=== PATIENT | male | born 1950 | race Caucasian/White ===

== ENCOUNTER → 2019-02-06 | Emergency (ER) | payer OTHER ==
[~2019-02-06] MED LIST: Patiromer POWDER* 8.4 GM PAK PO SCH
--- NOTE | 2019-02-06 12:35 | ED ---
GI/ HPI - HPI Summary HPI Summary: This patient is a 69 year old M presenting to ED with a chief complaint of L testicular pain and swelling since 01/31/19 that has worsened in the past week. The swelling began yesterday and was much more noticeable today. 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 The surgery was performed by Dr. Eliu Fernandez at [place]. The surgery was performed by . Patient reports L inguinal hardness. Patient denies difficulty urinating, fever, body aches, chills, N/V, abdominal pain. The patient rates the pain 4/10 in severity. Symptoms aggravated by nothing. Symptoms alleviated by nothing. - History of Current Complaint Chief Complaint: EDUrogenitalProblems Stated Complaint: DONATED KIDNEY 1 WK AGO/SWELLING/PAIN PER PT Hx Obtained From: Patient Onset/Duration: Started Weeks Ago - 01/31/19, Still Present, Worse Since - Timing: Constant, Lasting Weeks - 1 week Severity: Mild Current Severity: Moderate Pain Intensity: 4 Location of Pain: Other - L testicular Additional Locations for Males: Testicles Pain Characteristics: Other: - Soreness Pain Radiates to: Inguinal Associated Signs and Symptoms: Positive: Negative - Difficulty urinating, body aches. Negative: Nausea, Vomiting, Fever, Abdominal Pain Aggravating Factor(s): Nothing Alleviating Factor(s): Nothing - Allergy/Home Medications Allergies/Adverse Reactions: Allergies Allergy/AdvReac Type Severity Reaction Status Date / Time No Known Allergies Allergy Verified 02/06/19 10:50 Home Medications: Home Medications Acetaminophen [Tylenol] 650 mg PO QID PRN 02/06/19 [History Confirmed 02/06/19] Citalopram Hydrobromide [Citalopram HBr] 20 mg pe PO DAILY WITH MEAL 02/06/19 [ History Confirmed 02/06/19] Docusate Sodium [Colace] 100 mg PO BID PRN 02/06/19 [History Confirmed 02/06/19] Gabapentin 100 mg PO TID 02/06/19 [History Confirmed 02/06/19] Oxycodone HCl 5 mg PO Q6HR PRN 02/06/19 [History Confirmed 02/06/19] PMH/Surg Hx/FS Hx/Imm Hx Cardiovascular History: Reports: Hx Hypercholesterolemia Denies: Hx Pacemaker/ICD Musculoskeletal History: Reports: Hx Bursitis Sensory History: Reports: Hx Contacts or Glasses Denies: Hx Hearing Aid Opthamlomology History: Reports: Hx Contacts or Glasses Psychiatric History: Reports: Hx Depression Denies: Hx Panic Disorder - Surgical History Surgery Procedure, Year, and Place: LUMBAR DISCECTOMY; RIGHT SHOULDER ARTHROSCOPE; BILAT KNEE ARTHROSCOPES. laparoscopic kidney donation - Immunization History Date of Tetanus Vaccine: unk Date of Influenza Vaccine: 2014 Infectious Disease History: No Infectious Disease History: Denies: Traveled Outside the [place] in Last 30 Days - Family History Known Family History: Positive: Cardiac Disease Negative: Hypertension, Diabetes - Social History Alcohol Use: Daily Alcohol Amount: 1 drink a day Hx Substance Use: No Substance Use Type: Reports: None Hx Tobacco Use: No Smoking Status (MU): Never Smoked Tobacco Review of Systems Negative: Fever, Chills Negative: Abdominal Pain, Vomiting, Nausea Genitourinary: Negative - Difficulty urinating, Other - L-testicular soreness and swelling, subjective L inguinal hardness Negative: Arthralgia, Myalgia All Other Systems Reviewed And Are Negative: Yes Physical Exam - Summary Physical Exam Summary: GENERAL: Patient is a well-developed and nourished M who is lying comfortable in the stretcher. Patient is not in any acute respiratory distress. HEAD AND FACE: Normocephalic EYES: PERRLA, EOMI x 2. EARS: Hearing grossly intact. MOUTH: Oropharynx within normal limits. NECK: Supple, trachea is midline, no adenopathy, no JVD, no carotid bruit. CHEST: Symmetric, no tenderness at palpation LUNGS: Clear to auscultation bilaterally. No wheezing or crackles. CVS: Regular rate and rhythm, S1 and S2 present, no murmurs or gallops appreciated. ABDOMEN: tender to palpation at the surgical site, swollen and tender to palpation in the inguinal ligament region, tender to palpation in the left testicular region EXTREMITIES: Full ROM in all major joints, no edema, no cyanosis or clubbing. NEURO: Alert and oriented x 3. No acute neurological deficits. Speech is normal and follows commands. SKIN: Dry and warm Triage Information Reviewed: Yes Vital Signs On Initial Exam: Initial Vitals Temp Pulse Resp BP Pulse Ox 98.5 F 76 16 133/90 98 02/06/19 10:44 02/06/19 10:44 02/06/19 10:44 02/06/19 10:44 02/06/19 10:44 Vital Signs Reviewed: Yes Diagnostics - Vital Signs Vital Signs Temp Pulse Resp BP Pulse Ox 02/06/19 10:44 98.5 F 76 16 133/90 98 - Laboratory Result Diagrams: 02/06/19 12:34 02/06/19 12:34 Lab Statement: Any lab studies that have been ordered have been reviewed, and results considered in the medical decision making process. - Ultrasound Testicular Ultrasound Interpretation Completed By: Radiologist Summary of Ultrasound Findings: Enlarged left spermatic cord compared to the right. This is consistent with left vastitis. Small left hydrocele is noted. Dr. Santiago has reviewed this radiology report. Re-Evaluation - Re-Evaluation First Eval Re-Evaluation Time: 13:31 Comment: Discussed results with patient and informed him that we are waiting to hear back from his surgeon at [place]. Second Eval Re-Evaluation Time: 14:08 Comment: Told patient of plan to arrive earlier for his follow-up with transplant surgeon tomorrow. I will give patient a copy of his US to bring with him. GIGU Course/Dx - Course Course Of Treatment: This patient is a 69 year old M presenting to ED with a chief complaint of L testicular pain and swelling since 01/31/19 that has worsened in the past week. In the ED course, patient received Veltassa. Testicular US revealed enlarged left spermatic cord compared to the right. This is consistent with left vastitis. Small left hydrocele is noted. Blood work obtained. Discussed patient case with Dr. Harley, transplant surgeon at [place], who reviewed the patient's chart. The patient is already scheduled to follow-up tomorrow at 1030 in [place], so he recommended we tell the patient to arrive earlier for his appointment. He stated we should not do anything differently at this time. Therefore, the patient will be discharged home with dx of vasitis and instructions to arrive early for his appointment tomorrow. I discussed results with patient, and he reports feeling better. He is hemodynamically stable and safe for discharge. Strict return precautions given and he will otherwise follow up with his transplant surgeon. - Diagnoses Provider Diagnoses: Vasitis - Physician Notifications Discussed Care Of Patient With: Karri Trujillo Time Discussed With Above Provider: 14:05 Instructed by Provider To: Other - Discussed patient case with Dr. Harley, transplant surgeon at [place], who reviewed the patient's chart. The patient is already scheduled to follow-up tomorrow at 1030 in [place], so he recommended we tell the patient to arrive earlier for his appointment. He stated we should not do anything differently at this time. Discharge - Sign-Out/Discharge Documenting (check all that apply): Patient Departure - Discharge Patient Received Moderate/Deep Sedation with Procedure: No - Discharge Plan Condition: Stable Disposition: HOME Patient Education Materials: Testicle Pain (ED) Referrals: Rayo Simeon MD [Primary Care Provider] - 3 Days Additional Instructions: Arrive at 0930 for your 1030 appointment tomorrow at [place]. RETURN TO THE EMERGENCY DEPARTMENT FOR CHANGING OR WORSENING SYMPTOMS. - Billing Disposition and Condition Condition: STABLE Disposition: Home - Attestation Statements Document Initiated by Chantaleibe: Yes Documenting Scribe: Ryao Castillo Provider For Whom Scribe is Documenting (Include Credential): Aden Santiago MD Scribe Attestation: IRayo, scribed for Aden Santiago MD on 02/08/19 at 0748. Scribe Documentation Reviewed: Yes Provider Attestation: The documentation as recorded by the Rayo cantrell accurately reflects the service I personally performed and the decisions made by me, Aden Santiago MD Status of Scribe Document: Viewed
[2019-02-06 12:50] LABS: ABS Basophils 0.1 10^3/ul (0-0.2); ABS Eosinophils 0.2 10^3/ul (0-0.6); ABS Lymphocytes 1.4 10^3/ul (1.0-4.8); ABS Monocytes 0.8 10^3/ul (0-0.8); ABS Neutrophils 7.7 10^3/ul (1.5-7.7); Eosinophil % 1.6 %; Hematocrit 37 % (42-52); Hemoglobin 12.1 g/dL (14.0-18.0); Lymphocyte % 13.5 %; Mean Corpuscular HGB Conc 33 g/dL (31-36); Mean Corpuscular Hemoglobin 30 pg (27-31); Mean Corpuscular Volume 90 fL (80-94); Mean Platelet Volume 7.6 fL (7.4-10.4); Platelet Count 352 10^3/uL (150-450); Red Blood Count 4.08 10^6 /uL (4.18-5.48); Red Cell Distribution Width 14 % (10-15)
[2019-02-06 13:07] LABS: Albumin 3.8 g/dL (3.2-5.2); BUN/Creatinine Ratio 18.1 (8-20); Calcium 9.1 mg/dL (8.6-10.3); EGFR Non-African American 42.9 (>60); Total Protein 6.8 g/dL (6.4-8.9)
[2019-02-06 13:08] LABS: Albumin/Globulin Ratio 1.3 (1-3); CRP High Sensitivity 45.65 mg/L (<2.00); Total Bilirubin 0.5 mg/dL (0.2-1.0)
[2019-02-06 13:09] LABS: Potassium 5.1 mmol/L (3.5-5.0)
[2019-02-06 13:11] LABS: Urine Appearance Clear; Urine Bilirubin Negative (Negative); Urine Blood Negative (Negative); Urine Color Yellow; Urine Glucose Negative (Negative); Urine Ketones Negative (Negative); Urine Nitrite Negative (Negative); Urine Protein Negative (Negative); Urine Specific Gravity 1.009 (1.010-1.030); Urine Urobilinogen Negative (Negative)
[2019-02-06 15:05] VITALS: BP 118/79
== END | disposition home or self-care (01) ==
LOC: ED 10:40
DX: N49.1 Inflammatory disorders of spermatic cord, tunica vaginalis and vas deferens (principal); N43.3 Hydrocele, unspecified; E78.00 Pure hypercholesterolemia, unspecified; Z79.899 Other long term (current) drug therapy; Z79.891 Long term (current) use of opiate analgesic
CPT/HCPCS: 36415; 76870; 80053; 81003; 85025; 86141; 99283; A9270-GY

== ENCOUNTER → 2019-07-05 05:50 | Day surgery (SDC) | payer BC, OTHER ==
[~2019-07-05 05:50] MED LIST changes: +Buffered Lidocaine 1% SYRIN* 1 ML/SYRINGE INTRADERM ONE; +Bupivacaine 0.25% EPI 200,000* 30 ML SDV ONE; +Dexamethasone IV* 4 MG/ML 1 ML (4 MG) ONE; +Famotidine IV* 10 MG/ML 2 ML (20 mg) IV ONE; +Famotidine IV* 10 MG/ML 2 ML (20 mg) ONE; +Ketorolac INJ* 30 MG/ML 1 ML VIAL ONE; +Lactated Ringers 1000 ML Bag* 1,000 ML IV SCH; +Lidocaine 2% PF * 5 ML VIAL ONE; +Midazolam* 1 MG/ML 5 ML VIAL (5 MG) ONE; +Naloxone* 0.4 MG/ML 1 ML VIAL IV PRN; +Ondansetron INJ* 2 MG/ML VIAL IV PRN; +Ondansetron INJ* 2 MG/ML VIAL ONE; -Patiromer POWDER* 8.4 GM PAK PO SCH; +Propofol* 10 MG/ML 20 ML BTL ONE; +Rocuronium* 10 MG/ML VIAL ONE; +ceFAZolin 2 GM PREMIX in ORs 2 GM/50 ML BAG ONE; +fentaNYL* 50 MCG/ML 2 ML VIAL (100 MCG VIAL) IV PRN; +fentaNYL* 50 MCG/ML 2 ML VIAL (100 MCG VIAL) ONE; +oxyCODONE/Acetamin 5/325 MG* TAB PO PRN
[2019-07-05 10:41] VITALS: BP 135/90
--- NOTE | 2019-07-05 22:21 | OP ---
CC: Rayo Simeon MD; Jamal Melgoza MD * DATE OF OPERATION: 07/05/19 - [facility] DATE OF : 48 SURGEON: Dr. Sin. MUTTON PUNCHER: DAVID Perez ANESTHESIOLOGIST: Mitchell Mendoza MD ANESTHESIA: General endotracheal. PRE-OP DIAGNOSIS: Left inguinal hernia. POST-OP DIAGNOSIS: Left inguinal hernia. OPERATIVE PROCEDURE: Robotic left inguinal hernia repair with mesh. ESTIMATED BLOOD LOSS: Less than 5 mL. IV FLUIDS: Crystalloids. SPECIMEN: None. DRAINS: None. COMPLICATIONS: None. COUNTS: Instrument, needle, sponge counts correct. DESCRIPTION OF PROCEDURE: The patient was brought to the operating room and placed on the table supine. Sequential compression devices were placed in both lower extremities. General anesthesia was administered. He was positioned and padded appropriately and prepped and draped in usual sterile fashion and a time- out was performed. He received appropriate intravenous antibiotics. Local anesthetic was infiltrated into the skin and soft tissue prior to each incision. Veress needle was used through a right subcostal approach to access the peritoneal cavity and insufflate the peritoneal cavity with carbon dioxide to pressure of 12 mmHg. The 8 mm optical trocar was then placed in the right upper quadrant. Inspection revealed no injury to underlying viscera and there were no adhesions to the anterior abdominal wall. Additional 8 mm trocars were placed one in the superior umbilical midline and one in the left upper quadrant. The robot was docked in the usual fashion. Inspection revealed evidence of the adherence of the sigmoid colon and the area of the left inguinal region. There appeared to be postoperative changes related to his previous nephrectomy. The peritoneal flap was created approximately 8 cm cephalad to the inguinal ligament dividing the peritoneum sharply and going from the midline laterally and then using blunt dissection, the preperitoneal space was entered and inferior epigastric vessels were preserved and maintained anteriorly. Dissection proceeded to the midline. Pubic symphysis and Juan's ligament were identified and dissection proceeded laterally to the anterosuperior iliac spine, identifying and preserving the spermatic cord structures. There was a cord lipoma, reduced. There was an indirect inguinal hernia identified and after completing raising the peritoneal flap, the repair was performed with a 10 x 15 cm laparoscopic ProGrip mesh. This was placed to cover from the midline laterally. Once positioned, it covered direct, indirect, and femoral space as well. The peritoneal flap was then closed with a 3-0 V-Loc 90 suture running this medial to laterally and back upon itself to close the flap. There was a small rent in the lower peritoneum that was also closed with the suture tying it upon itself. Subsequently, needle and instruments were removed, and carbon dioxide was released. Incisions were closed with 4-0 Monocryl in subcuticular fashion and DermaFlex was applied. The patient tolerated this procedure well. He was extubated and transferred to Recovery in stable condition. [id number]/[facility] #: [id number] [facility]
== END | disposition home or self-care (01) ==
LOC: OR 05:50
PROVIDERS: ATTEND Surgery
DX: K40.90 Unilateral inguinal hernia, without obstruction or gangrene, not specified as recurrent (principal); Z90.5 Acquired absence of kidney; M19.90 Unspecified osteoarthritis, unspecified site; G45.4 Transient global amnesia; E78.5 Hyperlipidemia, unspecified
CPT/HCPCS: 49650; S2900; C1781; J0690; J1100; J1885; J2250; J2405; J2704; J3010